=== PATIENT | female | born 1975 | race Caucasian/White ===

== ENCOUNTER 2017-05-27 18:29 | Emergency (ER) | payer BC, OTHER ==
[~2017-05-27] VITALS: Ht 165.1 cm; Wt 73.8 kg
[2017-05-27 18:38] VITALS: BP 122/81; PULSE 77; TEMP 37; O2SAT 99; Ht 165.1 cm; Wt 73.8 kg
--- NOTE | 2017-05-27 19:02 | EMERGENCY ROOM VISIT NOTE ---
ED Visit Note First contact with patient: 18:41 CHIEF COMPLAINT: Vaginal foreign body HISTORY OF PRESENT ILLNESS: Patient is a 41-year-old white female female who presents the emergency department for evaluation of a vaginal foreign body that has been stuck since this morning. She used a Poise Impressa (like a large tampon for urinary incontinence) before exercising, and when she tried to remove it this string broke. She tried but is unable to remove it. She denies abdominal pain, nausea, or vomiting. REVIEW OF SYSTEMS: Review of systems as per HPI. All other systems reviewed were negative. At least 6 systems reviewed. PMH: Electronic medical records are reviewed and summarized as above/below. See Problem List. SOCIAL HISTORY: Patient lives at home with her family. Nonsmoker. PHYSICAL EXAM: Vital Signs: Reviewed Nurse's notes. CONSTITUTIONAL: Patient is a pleasant, well-appearing 41-year-old white female who is awake and alert and in no acute distress. SKIN: Normal. PELVIC EXAM: VAGINA: Retained tampon in the vaginal vault. No discharge. CERVIX: Closed, pink, nontender. VULVA: No ulcers, vesicles, or atrophy. EMERGENCY DEPARTMENT COURSE: Speculum was placed and intact foreign body was removed with ring forceps. Patient tolerated the procedure well. She had no complaints. The patient will be discharged to home. Medication reconciliation: I attest that I have personally reviewed the patient' s current medication list. Blood pressure screening : Patient was found to have normal blood pressure on screening and does not require follow-up. Problem List Medical Problems: (1) IBS (irritable bowel syndrome) Status: Chronic Surgical Problems: (1) H/O abdominoplasty Status: Resolved (2) H/O section Status: Resolved Current/Historical Medications Unable to Obtain Active Prescriptions or Reported Meds Allergies Coded Allergies: No Known Allergies (Unverified , 12/25/10) Vital Signs Date Time Temp Pulse Resp B/P (MAP) Pulse Ox O2 Delivery O2 Flow Rate FiO2 05/27/17 18:38 37.0 77 18 122/81 99 Room Air Departure Information Impression Primary Impression: Retained vaginal foreign body Prescriptions Unable to Obtain Active Prescriptions or Reported Meds Referrals No Doctor, Assigned (PCP) Patient Instructions My [facility] Additional Instructions Follow-up with your ARCHITECTURAL MODEL MAKER if needed. Problem Qualifiers Primary Impression: Retained vaginal foreign body Encounter type: initial encounter Qualified Codes: T19.2XXA - Foreign body in vulva and vagina, initial encounter
== END 2017-05-27 19:05 | disposition home or self-care (01) ==
LOC: C.EDB 18:30
DX: T19.2XXA Foreign body in vulva and vagina, initial encounter (principal); X58.XXXA Exposure to other specified factors, initial encounter

== ENCOUNTER 2018-03-19 08:36 | Emergency (ER) | payer OTHER ==
[~2018-03-19] VITALS: Ht 165.1 cm; Wt 74.3 kg
[2018-03-19 08:46] VITALS: TEMP 37.1; Ht 165.1 cm; Wt 74.3 kg
--- NOTE | 2018-03-19 09:19 | EMERGENCY ROOM VISIT NOTE ---
History Report prepared by Coco: Dao Dobbs Under the Supervision of: Dr. Tammy Chanel M.D. First contact with patient: 08:55 Chief Complaint: OTHER COMPLAINT Stated Complaint: FEMALE ISSUES History of Present Illness The patient is a 42 year old female who presents to the Emergency Room with complaints of worsening swelling/pain to her labia unilaterally. The patient states that the swelling/pain began yesterday afternoon, and progressively worsened until now. She notes that she does have a history of ingrown hairs that needed to be drained by her primary care office. She is sexually active, with 1 partner. She has no concerns of STDs or changes of . The area is slightly itchy, but she denies any vaginal discharge or urinary burning. There is no burning with urination. She was started on Augmentin for an ear infection 3 days ago. Source of History: patient Onset: Yesterday afternoon Position: other (Genitorurinary labia ) Quality: other (swelling/pain) Timing: worsening Associated Symptoms: No urinary symptoms Note: Some itching, no vaginal discharge. Review of Systems See HPI for pertinent positives & negatives. A total of 10 systems reviewed and were otherwise negative. Past Medical & Surgical Medical Problems: (1) IBS (irritable bowel syndrome) Surgical Problems: (1) H/O abdominoplasty (2) H/O section Family History Patient reports no known family medical history. Social History Smoking Status: Never Smoker Marital Status: Housing Status: lives with significant other Occupation Status: unemployed Current/Historical Medications Scheduled Amoxicillin & Pot Clavulanate (Augmentin 875-125 mg), 1 TAB PO BID Doxycycline Monohydrate (Monodox), 100 MG PO BID Allergies Coded Allergies: No Known Allergies (Unverified , 03/19/18) Physical Exam Vital Signs Date Time Temp Pulse Resp B/P (MAP) Pulse Ox O2 Delivery O2 Flow Rate FiO2 03/19/18 11:19 76 20 118/75 100 Room Air 03/19/18 08:46 37.1 89 16 132/88 100 Room Air Physical Exam Vital signs reviewed. General: Well-appearing female, in no significant distress. HEENT: No scleral icterus, PERRLA, neck supple. Atraumatic. The right TM is edematous with some opacity, no redness. Neurologic: Patient awake alert and oriented x 3. Skin: Warm, dry, labia as described below : There is slight induration of the left labia, no obvious abscess noted. No drainage appreciated. There is mild cervical motion tenderness, with a mild milky-white discharge noted. IUD strings are present from the cervical os. Medical Decision & Procedures ER Provider Diagnostic Interpretation: Radiology results as stated below per my review and radiologist interpretation: EXTREMITY NONVASCULAR LIMITED CLINICAL HISTORY: ? abscess L labia swelling COMPARISON STUDY: None. FINDINGS: Real-time sonographic imaging of the left labia was performed with wholesale representative images submitted. No fluid collections or masses identified within the left labia. IMPRESSION: No fluid collection or masses identified within the left labia. Electronically signed by: Mariusz Fisher M.D. 03/19/2018 10:36 AM Dictated Date/Time: 03/19/2018 10:34 AM Laboratory Results Test 03/19/18 09:35 Chlamydia trachomatis RNA NOT DETECTED (NOT DETECTED) Neisseria gonorrhoeae RNA NOT DETECTED (NOT DETECTED) Laboratory results per my review. ED Course 0904: Past medical records reviewed. The patient was evaluated in room B12B. A complete history and physical examination was performed. 1129: I discussed findings with her. She verbalized agreement of the treatment plan. the patient was discharged home. Medical Decision Differential diagnosis: Etiologies such as cellulitis, abscess, necrotizing fasciitis, dermatitis, drug eruption, as well as others were entertained. This patient was evaluated and appeared to be in no significant distress. Pelvic exam was performed and reveals a small amount of discharge that is likely physiologic. Cultures were obtained. IUD strings are visualized through the cervical os. The left labia appears to be indurated but no palpable fluctuance was appreciated. The patient was informed of the findings. An ultrasound of the labia was performed to rule out subcutaneous fluid collection. The study is negative. Patient is currently taking Augmentin for the otitis media, doxycycline was added. She states she has some GI irritation from sulfa drugs. Patient was advised to follow-up with HYDROELECTRIC COMPONENT MACHINIST or her family physician this week for reevaluation and return to the ER for worsening symptoms or any medical concerns. Medication Reconcilliation Current Medication List: was personally reviewed by me Blood Pressure Screening Patient's blood pressure: Normal blood pressure Impression Primary Impression: Cellulitis of labia Additional Impression: Right acute otitis media Scribe Attestation The scribe's documentation has been prepared under my direction and personally reviewed by me in its entirety. I confirm that the note above accurately reflects all work, treatment, procedures, and medical decision making performed by me. Departure Information Dispostion Home / Self-Care Prescriptions Doxycycline Monohydrate (Monodox) 100 Mg Cap 100 MG PO BID for 7 Days, #14 CAP Prov: Tammy Chanel M.D. 03/19/18 Referrals Mata MontgomeryDYovaniOYovani (PCP) Forms HOME CARE DOCUMENTATION FORM, IMPORTANT VISIT INFORMATION, WORK / SCHOOL INSTRUCTIONS Patient Instructions My [facility] Additional Instructions Diagnosis: Labial cellulitis, right otitis media Continue Augmentin as prescribed for the ear Doxycycline 100 mg twice daily for 7 days. Ibuprofen 600 mg every 6 hours as needed for pain with food. Warm compresses. Problem Qualifiers
[2018-03-19] MEDS ORDERED: AMOX875T PO (10:01)
--- NOTE | 2018-03-19 10:37 | DIAGNOSTIC IMAGING REPORT ---
EXTREMITY NONVASCULAR LIMITED CLINICAL HISTORY: ? abscess L labia swelling COMPARISON STUDY: None. FINDINGS: Real-time sonographic imaging of the left labia was performed with senior customer service representative images submitted. No fluid collections or masses identified within the left labia. IMPRESSION: No fluid collection or masses identified within the left labia. Electronically signed by: Mariusz Fisher M.D. 03/19/2018 10:36 AM Dictated Date/Time: 03/19/2018 10:34 AM
[2018-03-19 11:19] VITALS: BP 118/75; PULSE 76; O2SAT 100
[2018-03-19] MEDS ORDERED: CEPH500C PO (11:27)
[2018-03-19] MEDS ORDERED: SULF800T23 PO (11:27)
[2018-03-19] MEDS ORDERED: DOXY100C76 PO (11:32)
== END 2018-03-19 11:42 | disposition home or self-care (01) ==
LOC: C.EDB 08:37
DX: N76.2 Acute vulvitis (principal); H66.91 Otitis media, unspecified, right ear